=== PATIENT | female | born 1980 | race African-American/Black ===

== ENCOUNTER 2017-02-06 07:05 | Emergency (ER) | payer OTHER ==
[~2017-02-06] VITALS: Ht 170.2 cm; Wt 86.3 kg
[~2017-02-06 07:05] MED LIST: ABILIFY20 MG PO; ADDERALL XR 1515 MG PO; ADDERALL15 MG PO; ALBUTEROL SULF8.5 GM IH; AMBIEN10 MG PO; ANTIBIOTIC; Ambien PO; Augmentin PO; BACTRIM,SEPT1 TABLET PO; BENTYL20 MG PO; BUSPAR15 MG PO; CATAPRES0.1 MG PO; CEFDINIR300 MG PO; CIPRO500 MG PO; CLINDAMYCIN HC300 MG PO; CLONAZEPAM0.5 MG PO; CLONIDINE HCL0.1 MG PO; COUMADIN5 MG PO; CYCLOBENZAPRINE10 MG PO; Catapres PO; Citrate Of Magnesia PO; DOXYCYCLINE HY100 M1 PO; DOXYCYCLINE HY100 MG PO; FLAGYL500 MG PO; FLORASTOR250 MG PO; FONDAPARIN7.5 MG/0.6 SC; GLUCOPHAGE500 MG PO; Glucophage PO; INVEGA6 MG PO; KEFLEX500 MG PO; KLONOPIN0.5 M1 PO; KlonoPIN PO; LAMICTAL200 MG PO; LAMICTAL25 MG PO; LAMICTAL5 MG PO; LAMOTRIGINE100 MG PO; LAMOTRIGINE200 MG PO; LEVAQUIN750 MG PO; LEXAPRO10 MG PO; LaMICtal PO; Lovenox SC; MACROBID100 MG PO; MEGACE20 MG PO; METFORMIN; METFORMIN HCL500 MG PO; MOTRIN800 MG PO; MUCUS ER600 MG PO; NAPROSYN500 MG PO; NORCO 7.5/321 TABLET PO; OPANA ER10 MG PO; OPANA ER15 MG PO; OXYCODONE HCL10 MG PO; OXYCODONE HCL20 M1 PO; OXYCONTIN20 MG; OXYMORPHONE HCL10 M1; Omnicef PO; OxyCODONE PO; PEN-VEE K,VEET500 MG PO; PERCOCET 10/1 TABLET PO; PERCOCET 5/31 TABLET PO; PRAZOSIN HCL1 MG PO; PROMETHAZINE HC25 M1 PO; PROVENTIL HFA6.7 GM IH; PYRIDIUM200 MG PO; RYBIX ODT50 MG PO; SERTRALINE HCL100 MG PO; SERTRALINE HCL25 MG; STRATTERA; TESSALON PERLE100 MG PO; TIZANIDINE HCL4 M1 PO; TIZANIDINE HCL4 MG PO; TOPAMAX; TRAMADOL HCL50 MG PO; TYLENOL REGULA325 MG PO; VICODIN HP 10-1 EACH PO; WARFARIN SODIU7.5 MG PO; WARFARIN SODIUM5 MG PO; ZOFRAN4 MG PO; ZOLOFT100 MG PO; Zoloft PO; [UNRECOGNIZED DRUG - REMARK]; oxyCODONE PO
[2017-02-06 08:13] LABS: HEMATOCRIT 43.3 % (36.0-46.0); MCH 29.9 PG (29.0-34.0); MCHC 33.9 G/DL (30.0-36.0); MCV 88.2 FL (83-99); PLATELET COUNT 333 K/uL (156-360); RBC DIS.WIDTH-CV 12.6 % (11.8-14.6); RED BLOOD COUNT 4.91 M/uL (3.80-5.20); WHITE BLOOD COUNT 18.4 K/uL (4.1-10.2)
[2017-02-06 08:22] LABS: CHLORIDE 104 mEq/L (99-109); POTASSIUM 3.3 mEq/L (3.7-5.4); SODIUM 142 mEq/L (136-147)
[2017-02-06 08:24] LABS: GLUCOSE 207 mg/dL (70-99)
[2017-02-06 08:25] LABS: ANION GAP 19 MEQ/L (2-14)
[2017-02-06 08:26] LABS: TOTAL BILIRUBIN 0.8 mg/dL (0.0-1.0)
[2017-02-06 08:27] LABS: ALKALINE PHOSPHATASE 46 IU/L (3-129)
[2017-02-06 08:28] LABS: GFR ESTIMATE (CALCULATED) > 59 mL/min/
[2017-02-06 08:29] LABS: UREA NITROGEN (BUN) 19 mg/dL (9-23)
[2017-02-06 08:31] LABS: LIPASE 15 U/L (1.0-51.0)
[2017-02-06 08:38] LABS: QUANTITATIVE HCG < 4.0 MIU/ML
[2017-02-06 10:27] LABS: ADD MIUA? YES; BILIRUBIN NEGATIVE; BLOOD NEGATIVE; COLOR YELLOW ((YELLOW)); GLUCOSE (STRIP) NEGATIVE; KETONES 80; LEUKOCYTES TRACE; NITRITE POSITIVE; PROTEIN (STRIP) 100; SPECIFIC GRAVITY 1.028 (1.000-1.030); UROBILINOGEN 0.2 MG/DL (0.2-1.0)
[2017-02-06 10:38] LABS: BACTERIA 2+ /HPF; EPITHELIAL CELLS RARE /HPF; MUCUS 4+ /LPF; RED BLOOD CELLS 0-5 /HPF (0-5); UCUL ADDED? YES
[2017-02-06 13:05] VITALS: BP 123/40
[2017-02-07] MEDS ORDERED: PERCOCET 7.51 TABLET PO (14:00)
[2017-02-07] MEDS ORDERED: ZOFRAN ODT4 MG PO (14:01)
[2017-02-07] MEDS ORDERED: ADDERALL XR 2020 MG PO (14:05)
== END 2017-02-06 13:12 | disposition home or self-care (01) ==
LOC: EME 07:05
DX: N39.0 Urinary tract infection, site not specified (principal); R11.2 Nausea with vomiting, unspecified; Z87.440 Personal history of urinary (tract) infections
CPT/HCPCS: 74176; 80053; 81003; 83690; 84702; 85027; 87077; 87086; 87186; 99281; 99284; J1885; J2270; J2405; J3260; J7030; J7050

== ENCOUNTER 2017-03-20 17:49 | Emergency (ER) | payer OTHER ==
[~2017-03-20] VITALS: Ht 170.2 cm; Wt 80.1 kg
[~2017-03-20 17:49] MED LIST changes: +ADDERALL XR 2020 MG PO; +PERCOCET 7.51 TABLET PO; +ZOFRAN ODT4 MG PO
[2017-03-20 19:31] LABS: HEMATOCRIT 39.6 % (36.0-46.0); MCH 30.7 PG (29.0-34.0); MCHC 33.8 G/DL (30.0-36.0); MCV 90.6 FL (83-99); MEAN PLAT.VOLUME 9.9 uM^3 (9.5-12.4); PLATELET COUNT 317 K/uL (156-360); RBC DIS.WIDTH-CV 12.5 % (11.8-14.6); RBC DIS.WIDTH-SD 41.3 % (39-53); RED BLOOD COUNT 4.37 M/uL (3.80-5.20); WHITE BLOOD COUNT 7.9 K/uL (4.1-10.2)
[2017-03-20 19:40] LABS: CHLORIDE 111 mEq/L (99-109); POTASSIUM 3.4 mEq/L (3.7-5.4); SODIUM 145 mEq/L (136-147)
[2017-03-20 19:41] LABS: GLUCOSE 108 mg/dL (70-99)
[2017-03-20 19:43] LABS: ANION GAP 12 MEQ/L (2-14)
[2017-03-20 19:45] LABS: GFR ESTIMATE (CALCULATED) > 59 mL/min/; SERUM ETHYL ALCOHOL < 10 mg/dL
[2017-03-20 19:46] LABS: UREA NITROGEN (BUN) 11 mg/dL (9-23)
[2017-03-20 19:54] LABS: QUANTITATIVE HCG < 4.0 MIU/ML
[2017-03-20 22:26] LABS: SALICYLATE < 5.0 MG/DL (15-30)
[2017-03-20] MEDS ORDERED: GABAPENTIN100 MG PO (23:50)
[2017-03-21 01:35] LABS: ADD MEDTOX COMMENT Y; AMPHETAMINE NEGATIVE (500 ng/mL); BARBITURATES NEGATIVE (200 ng/mL); BENZODIAZEPINES NEGATIVE (150 ng/mL); COCAINE NEGATIVE (150 ng/mL); INTERNAL CONTROLS VALID? YES; METHADONE NEGATIVE (200 ng/mL); METHAMPHETAMINE NEGATIVE (500 ng/mL); OPIATES (MORPHINE) NEGATIVE (100 ng/mL); OXYCODONE NEGATIVE (100 ng/mL); PHENCYCLIDINE NEGATIVE (25 ng/mL); PROPOXYPHENE NEGATIVE (300 ng/mL); THC CANNABINOIDS PRESUMPTIVE POSITIVE (50 ng/mL); TRICYCLIC ANTIDEPRESSANTS NEGATIVE (300 ng/mL)
[2017-03-21] MEDS ORDERED: ZOLOFT50 MG PO (13:37)
[2017-03-21 13:58] VITALS: BP 118/72
== END 2017-03-21 14:05 ==
LOC: EME 17:49
DX: F31.30 Bipolar disorder, current episode depressed, mild or moderate severity, unspecified (principal); R45.851 Suicidal ideations; I10 Essential (primary) hypertension; E11.9 Type 2 diabetes mellitus without complications; K21.9 Gastro-esophageal reflux disease without esophagitis; Z86.711 Personal history of pulmonary embolism; G89.29 Other chronic pain; J45.909 Unspecified asthma, uncomplicated; G43.909 Migraine, unspecified, not intractable, without status migrainosus
CPT/HCPCS: 80048; 84702; 84999; 85027; 90837; 99281; 99285; G0480

== ENCOUNTER 2017-03-23 22:53 | Emergency (ER) | payer OTHER ==
[~2017-03-23] VITALS: Ht 167.6 cm; Wt 78.0 kg
[~2017-03-23 22:53] MED LIST changes: +GABAPENTIN100 MG PO; +ZOLOFT50 MG PO
[2017-03-23 23:55] LABS: MCH 29.9 PG (29.0-34.0); MCHC 32.4 G/DL (30.0-36.0); PLATELET COUNT 284 K/uL (156-360); RBC DIS.WIDTH-CV 12.6 % (11.8-14.6); RBC DIS.WIDTH-SD 42.1 % (39-53); RED BLOOD COUNT 4.02 M/uL (3.80-5.20); WHITE BLOOD COUNT 6.9 K/uL (4.1-10.2)
[2017-03-24 00:13] LABS: CHLORIDE 110 mEq/L (99-109); POTASSIUM 3.9 mEq/L (3.7-5.4); SODIUM 143 mEq/L (136-147)
[2017-03-24 00:16] LABS: GLUCOSE 96 mg/dL (70-99)
[2017-03-24 00:17] LABS: ANION GAP 9 MEQ/L (2-14); TOTAL BILIRUBIN 0.2 mg/dL (0.0-1.0)
[2017-03-24 00:18] LABS: SERUM ETHYL ALCOHOL < 10 mg/dL
[2017-03-24 00:19] LABS: GFR ESTIMATE (CALCULATED) > 59 mL/min/
[2017-03-24 00:20] LABS: ALKALINE PHOSPHATASE 43 IU/L (3-129)
[2017-03-24 00:21] LABS: UREA NITROGEN (BUN) 15 mg/dL (9-23)
[2017-03-24 00:23] LABS: SALICYLATE < 5.0 MG/DL (15-30)
[2017-03-24 00:26] LABS: ADD MIUA? YES; BILIRUBIN NEGATIVE; BLOOD NEGATIVE; COLOR YELLOW ((YELLOW)); GLUCOSE (STRIP) NEGATIVE; KETONES NEGATIVE; LEUKOCYTES TRACE; NITRITE POSITIVE; PROTEIN (STRIP) NEGATIVE; SPECIFIC GRAVITY 1.011 (1.000-1.030); UROBILINOGEN 0.2 MG/DL (0.2-1.0)
[2017-03-24 00:29] LABS: BACTERIA RARE /HPF; EPITHELIAL CELLS RARE /HPF; MUCUS TRACE /LPF; RED BLOOD CELLS 0-5 /HPF (0-5); UCUL ADDED? NO
[2017-03-24 00:32] LABS: QUANTITATIVE HCG < 4.0 MIU/ML
[2017-03-24 00:34] LABS: ADD MEDTOX COMMENT Y; AMPHETAMINE PRESUMPTIVE POSITIVE (500 ng/mL); BARBITURATES NEGATIVE (200 ng/mL); BENZODIAZEPINES NEGATIVE (150 ng/mL); COCAINE NEGATIVE (150 ng/mL); INTERNAL CONTROLS VALID? YES; METHADONE NEGATIVE (200 ng/mL); METHAMPHETAMINE NEGATIVE (500 ng/mL); OPIATES (MORPHINE) NEGATIVE (100 ng/mL); OXYCODONE PRESUMPTIVE POSITIVE (100 ng/mL); PHENCYCLIDINE NEGATIVE (25 ng/mL); PROPOXYPHENE NEGATIVE (300 ng/mL); THC CANNABINOIDS PRESUMPTIVE POSITIVE (50 ng/mL); TRICYCLIC ANTIDEPRESSANTS NEGATIVE (300 ng/mL)
[2017-03-24 07:33] VITALS: BP 119/71
== END 2017-03-24 07:51 ==
LOC: EME → EDBD 22:53 → EME 22:53
PROVIDERS: Emergency Medicine
DX: T50.904A Poisoning by unspecified drugs, medicaments and biological substances, undetermined, initial encounter (principal); R41.82 Altered mental status, unspecified; F31.30 Bipolar disorder, current episode depressed, mild or moderate severity, unspecified; E11.9 Type 2 diabetes mellitus without complications
CPT/HCPCS: 70450; 71010; 72125; 80053; 81003; 82140; 84702; 84999; 85027; 93005; 99281; 99284; G0480; J7030

== ENCOUNTER 2017-06-13 12:22 | Emergency (ER) | payer OTHER ==
[~2017-06-13] VITALS: Ht 170.2 cm; Wt 83.3 kg
[2017-06-13 13:28] LABS: ADD MIUA? YES; BILIRUBIN NEGATIVE; BLOOD NEGATIVE; COLOR YELLOW ((YELLOW)); GLUCOSE (STRIP) NEGATIVE; KETONES NEGATIVE; LEUKOCYTES SMALL; NITRITE POSITIVE; PROTEIN (STRIP) 30; SPECIFIC GRAVITY 1.024 (1.000-1.030); UROBILINOGEN 0.2 MG/DL (0.2-1.0)
[2017-06-13 13:30] LABS: HEMATOCRIT 38.3 % (36.0-46.0); MCH 30.2 PG (29.0-34.0); MCHC 32.6 G/DL (30.0-36.0); MCV 92.5 FL (83-99); MEAN PLAT.VOLUME 9.6 uM^3 (9.5-12.4); PLATELET COUNT 249 K/uL (156-360); RBC DIS.WIDTH-CV 12.2 % (11.8-14.6); RBC DIS.WIDTH-SD 41.6 % (39-53); RED BLOOD COUNT 4.14 M/uL (3.80-5.20); WHITE BLOOD COUNT 6.1 K/uL (4.1-10.2)
[2017-06-13 13:44] LABS: BACTERIA 2+ /HPF; EPITHELIAL CELLS RARE /HPF; MUCUS 2+ /LPF; RED BLOOD CELLS 0-5 /HPF (0-5); UCUL ADDED? YES
[2017-06-13 13:44] LABS: CHLORIDE 101 mEq/L (99-109); POTASSIUM 3.7 mEq/L (3.7-5.4); SODIUM 140 mEq/L (136-147)
[2017-06-13 13:46] LABS: GLUCOSE 89 mg/dL (70-99)
[2017-06-13 13:48] LABS: ANION GAP 8 MEQ/L (2-14); TOTAL BILIRUBIN 0.2 mg/dL (0.0-1.0)
[2017-06-13 13:50] LABS: ALKALINE PHOSPHATASE 44 IU/L (3-129); GFR ESTIMATE (CALCULATED) > 59 mL/min/
[2017-06-13 13:51] LABS: UREA NITROGEN (BUN) 13 mg/dL (9-23)
[2017-06-13 13:53] LABS: LIPASE 13 U/L (1.0-51.0)
[2017-06-13] MEDS ORDERED: MACROBID100 MG PO (16:36)
[2017-06-13] MEDS ORDERED: CIPRO500 MG PO (16:44)
[2017-06-13 17:45] VITALS: BP 117/78
== END 2017-06-13 17:57 | disposition home or self-care (01) ==
LOC: EME 12:22
DX: S39.011A Strain of muscle, fascia and tendon of abdomen, initial encounter (principal); N39.0 Urinary tract infection, site not specified; E11.9 Type 2 diabetes mellitus without complications; I10 Essential (primary) hypertension; J45.909 Unspecified asthma, uncomplicated; K21.9 Gastro-esophageal reflux disease without esophagitis; Z87.442 Personal history of urinary calculi; Z90.710 Acquired absence of both cervix and uterus; Z86.718 Personal history of other venous thrombosis and embolism
CPT/HCPCS: 74177; 80053; 81003; 83690; 85027; 87077; 87086; 87186; 99281; 99285; J2270; J3010; J7040

== ENCOUNTER 2017-06-30 01:54 | Observation (INO) | payer OTHER ==
[~2017-06-30] VITALS: Ht 170.2 cm; Wt 83.8 kg
[2017-06-30 02:36] LABS: EOSINOPHIL COUNT 0.1 K/uL (0-0.3); HEMATOCRIT 40.2 % (36.0-46.0); IMMATURE GRANULOCYTE (%) 0.2 % (0.0-0.7); INSTRUMENT ABS NEUTROPHIL CT 5.6 K/uL; LYMPHOCYTE COUNT 3.4 K/uL (1.0-2.8); MCH 30.4 PG (29.0-34.0); MCHC 33.1 G/DL (30.0-36.0); MCV 91.8 FL (83-99); MEAN PLAT.VOLUME 9.7 uM^3 (9.5-12.4); MONOCYTE (%) 4.4 % (3-12); MONOCYTE COUNT 0.4 K/uL (0-0.8); NEUTROPHIL (%) 58.3 % (45-76); NEUTROPHIL COUNT 5.6 K/uL (1.8-6.4); PLATELET COUNT 283 K/uL (156-360); RBC DIS.WIDTH-CV 12.3 % (11.8-14.6); RBC DIS.WIDTH-SD 41.4 % (39-53); RED BLOOD COUNT 4.38 M/uL (3.80-5.20); WHITE BLOOD COUNT 9.5 K/uL (4.1-10.2)
[2017-06-30 02:44] LABS: CHLORIDE 107 mEq/L (99-109); POTASSIUM 3.4 mEq/L (3.7-5.4); SODIUM 142 mEq/L (136-147)
[2017-06-30 02:47] LABS: GLUCOSE 166 mg/dL (70-99)
[2017-06-30 02:48] LABS: ANION GAP 13 MEQ/L (2-14); TOTAL BILIRUBIN 0.2 mg/dL (0.0-1.0)
[2017-06-30 02:50] LABS: ALKALINE PHOSPHATASE 50 IU/L (3-129)
[2017-06-30 02:51] LABS: UREA NITROGEN (BUN) 11 mg/dL (9-23)
[2017-06-30 02:52] LABS: DIRECT BILIRUBIN 0.1 mg/dL (0.0-0.3)
[2017-06-30 02:54] LABS: GFR ESTIMATE (CALCULATED) > 59 mL/min/; LIPASE 27 U/L (1.0-51.0)
[2017-06-30 04:10] LABS: ADD MIUA? YES; BILIRUBIN NEGATIVE; BLOOD NEGATIVE; COLOR AMBER ((YELLOW)); GLUCOSE (STRIP) NEGATIVE; KETONES NEGATIVE; LEUKOCYTES TRACE; NITRITE POSITIVE; PROTEIN (STRIP) 30; SPECIFIC GRAVITY 1.026 (1.000-1.030); UROBILINOGEN 0.2 MG/DL (0.2-1.0)
[2017-06-30 04:13] LABS: INTERNAL CONTROL VALID? YES
[2017-06-30 04:33] LABS: RED BLOOD CELLS 0-5 /HPF (0-5)
[2017-06-30 04:34] LABS: BACTERIA 3+ /HPF; CALCIUM OXALATE CRYSTALS 2+ /HPF; CASTS NONE SEEN /LPF; CRYSTALS PRESENT; EPITHELIAL CELLS 2+ /HPF; MUCUS 3+ /LPF; UCUL ADDED? YES
[2017-06-30] MEDS ORDERED: LEVAQUIN500 MG PO (04:41)
[2017-06-30] MEDS ORDERED: PERCOCET 5/31 TABLET PO (04:51)
[2017-06-30] MEDS ORDERED: ZYPREXA10 MG PO (07:40)
[2017-06-30] MEDS ORDERED: ATARAX,VISTARIL25 MG PO (07:41)
[2017-06-30] MEDS ORDERED: FLEXERIL5 MG PO (07:41)
[2017-06-30 11:48] VITALS: BP 107/73
[2017-06-30 17:20] LABS: POINT-OF-CARE METER ID UU13113700
[2017-06-30 18:00] VITALS: BP 102/66
[2017-06-30 22:02] LABS: POINT-OF-CARE METER ID UU13113700
[2017-07-01 00:30] VITALS: BP 125/88
[2017-07-01 04:02] VITALS: BP 126/72
[2017-07-01 05:54] LABS: HEMATOCRIT 35.3 % (36.0-46.0); MCH 31.1 PG (29.0-34.0); MCHC 32.9 G/DL (30.0-36.0); MCV 94.6 FL (83-99); MEAN PLAT.VOLUME 10.1 uM^3 (9.5-12.4); PLATELET COUNT 240 K/uL (156-360); RBC DIS.WIDTH-CV 12.3 % (11.8-14.6); RBC DIS.WIDTH-SD 42.7 % (39-53); RED BLOOD COUNT 3.73 M/uL (3.80-5.20)
[2017-07-01 06:26] LABS: ANION GAP 8 MEQ/L (2-14); CHLORIDE 114 MEQ/L (99-109); GFR ESTIMATE (CALCULATED) > 59 mL/min/; SAMPLE HEMOLYSIS CHECK 0; SAMPLE ICTERIC CHECK 0; SAMPLE LIPEMIA CHECK 0; SODIUM 146 MEQ/L (136-147); UREA NITROGEN (BUN) 13 mg/dL (9-23)
[2017-07-01 06:27] LABS: GLUCOSE 98 mg/dL (70-99); POTASSIUM 4.6 MEQ/L (3.7-5.4)
[2017-07-01 08:10] LABS: POINT-OF-CARE METER ID UU13113831
[2017-07-01 08:29] LABS: Estimated Average Glucose 120 mg/dL (70-123); HEMOGLOBIN A1c (GLYCOHEMOGLOB) 5.8 % HGB (Below 5.7)
[2017-07-01 08:40] VITALS: BP 136/79
[2017-07-01] MEDS ORDERED: CEFTIN500 MG PO (09:23)
== END 2017-07-01 10:17 | disposition home or self-care (01) ==
LOC: EME 01:54 → ENRESERV 10:38 → EDOF 10:46 → 5WEST 10:46 → EDOF 10:46 → ENRESERV 10:47 → 5WEST 11:36
PROVIDERS: Emergency Medicine; Internal Medicine
DX: N39.0 Urinary tract infection, site not specified (principal); E11.9 Type 2 diabetes mellitus without complications; K21.9 Gastro-esophageal reflux disease without esophagitis; F32.9 Major depressive disorder, single episode, unspecified; Z86.718 Personal history of other venous thrombosis and embolism; Z95.828 Presence of other vascular implants and grafts; J45.909 Unspecified asthma, uncomplicated; Z87.440 Personal history of urinary (tract) infections; Z90.710 Acquired absence of both cervix and uterus; E78.5 Hyperlipidemia, unspecified; I10 Essential (primary) hypertension; Z82.49 Family history of ischemic heart disease and other diseases of the circulatory system; Z91.09 Other allergy status, other than to drugs and biological substances; Z91.040 Latex allergy status; Z88.5 Allergy status to narcotic agent; Z91.010 Allergy to peanuts; Z91.018 Allergy to other foods
CPT/HCPCS: 74176; 80048; 80076; 81003; 82948; 83036; 83605; 83690; 84703; 85025; 85027; 87077; 87086; 87186; 99202; 99281; 99285; G0378; J0696; J1650; J1885; J2765; J7030; J7050; Q0177

== ENCOUNTER 2017-09-12 11:07 | Emergency (ER) | payer OTHER ==
[~2017-09-12] VITALS: Ht 170.2 cm; Wt 83.0 kg
[~2017-09-12 11:07] MED LIST changes: +ATARAX,VISTARIL25 MG PO; +CEFTIN500 MG PO; +FLEXERIL5 MG PO; +LEVAQUIN500 MG PO; +ZYPREXA10 MG PO
[2017-09-12 13:15] VITALS: BP 102/69
[2017-09-12] MEDS ORDERED: FLEXERIL10 MG PO (13:45)
[2017-09-12] MEDS ORDERED: NAPROSYN500 MG PO (13:45)
== END 2017-09-12 14:11 | disposition home or self-care (01) ==
LOC: EME 11:07
DX: S20.212A Contusion of left front wall of thorax, initial encounter (principal); W10.9XXA Fall (on) (from) unspecified stairs and steps, initial encounter; J45.909 Unspecified asthma, uncomplicated; F32.9 Major depressive disorder, single episode, unspecified; F41.9 Anxiety disorder, unspecified; Z86.718 Personal history of other venous thrombosis and embolism; Z95.828 Presence of other vascular implants and grafts; Z91.040 Latex allergy status; Z88.8 Allergy status to other drugs, medicaments and biological substances
CPT/HCPCS: 71100; 99281; 99283

== ENCOUNTER 2017-10-09 16:29 | Observation (INO) | payer OTHER ==
[~2017-10-09] VITALS: Ht 170.2 cm; Wt 79.8 kg
[~2017-10-09 16:29] MED LIST changes: +FLEXERIL10 MG PO; -LAMOTRIGINE100 MG PO; -PERCOCET 7.51 TABLET PO; -ZYPREXA10 MG PO; +ZYPREXA15 MG PO
[2017-10-09 17:42] LABS: EOSINOPHIL (%) 0.1 % (0-5); HEMATOCRIT 43.6 % (36.0-46.0); IMMATURE GRANULOCYTE (%) 0.3 % (0.0-0.7); INSTRUMENT ABS NEUTROPHIL CT 10.2 K/uL; LYMPHOCYTE COUNT 1.8 K/uL (1.0-2.8); MCHC 34.2 G/DL (30.0-36.0); MCV 90.6 FL (83-99); MEAN PLAT.VOLUME 9.5 uM^3 (9.5-12.4); MONOCYTE (%) 4.7 % (3-12); MONOCYTE COUNT 0.6 K/uL (0-0.8); NEUTROPHIL (%) 80.7 % (45-76); NEUTROPHIL COUNT 10.2 K/uL (1.8-6.4); PLATELET COUNT 320 K/uL (156-360); RBC DIS.WIDTH-CV 12.2 % (11.8-14.6); RBC DIS.WIDTH-SD 40.4 % (39-53); RED BLOOD COUNT 4.81 M/uL (3.80-5.20); WHITE BLOOD COUNT 12.7 K/uL (4.1-10.2)
[2017-10-09 17:53] LABS: CHLORIDE 105 mEq/L (99-109); POTASSIUM 3.8 mEq/L (3.7-5.4); SODIUM 140 mEq/L (136-147)
[2017-10-09 17:55] LABS: GLUCOSE 141 mg/dL (70-99)
[2017-10-09 17:56] LABS: ANION GAP 11 MEQ/L (2-14)
[2017-10-09 17:59] LABS: GFR ESTIMATE (CALCULATED) > 59 mL/min/
[2017-10-09 18:00] LABS: UREA NITROGEN (BUN) 11 mg/dL (9-23)
[2017-10-09 18:19] LABS: POINT-OF-CARE METER ID UU14100415
[2017-10-09 18:31] LABS: ADD MIUA? YES; BILIRUBIN NEGATIVE; BLOOD NEGATIVE; COLOR YELLOW ((YELLOW)); GLUCOSE (STRIP) NEGATIVE; KETONES NEGATIVE; LEUKOCYTES SMALL; NITRITE POSITIVE; PROTEIN (STRIP) NEGATIVE; SPECIFIC GRAVITY 1.017 (1.000-1.030); UROBILINOGEN 0.2 MG/DL (0.2-1.0)
[2017-10-09 18:37] LABS: ERTH.SED.RATE 26 MM/HR (0-20)
[2017-10-09 18:45] LABS: BACTERIA RARE /HPF; CALCIUM OXALATE CRYSTALS 1+ /HPF; EPITHELIAL CELLS 1+ /HPF; MUCUS 2+ /LPF; RED BLOOD CELLS 0-5 /HPF (0-5); UCUL ADDED? YES; WHITE BLOOD CELLS 15-20 /HPF (0-5)
[2017-10-09] MEDS ORDERED: DURAGESIC12 MCG TD (22:06)
[2017-10-09] MEDS ORDERED: ADDERALL20 MG PO (22:07)
[2017-10-10 02:16] VITALS: BP 117/73
[2017-10-10 04:00] VITALS: BP 109/66
[2017-10-10 07:22] VITALS: BP 107/56
[2017-10-10 11:42] VITALS: BP 96/55
[2017-10-10] MEDS ORDERED: CEFTIN500 MG PO (14:17)
== END 2017-10-10 15:40 | disposition home or self-care (01) ==
LOC: EME 16:29 → EDOF 23:19 → 5WEST 23:19 → EDOF 23:19 → ENRESERV 23:21 → 5WEST 10-10 01:51
PROVIDERS: Emergency Medicine; Hospitalist
DX: G89.29 Other chronic pain (principal); M54.5 Low back pain; N39.0 Urinary tract infection, site not specified; Z85.41 Personal history of malignant neoplasm of cervix uteri; Z87.440 Personal history of urinary (tract) infections; G43.909 Migraine, unspecified, not intractable, without status migrainosus; J45.909 Unspecified asthma, uncomplicated; R32 Unspecified urinary incontinence; F43.10 Post-traumatic stress disorder, unspecified; Z90.710 Acquired absence of both cervix and uterus; Z98.890 Other specified postprocedural states; E66.01 Morbid (severe) obesity due to excess calories; Z68.27 Body mass index [BMI] 27.0-27.9, adult; Z91.010 Allergy to peanuts; Z91.018 Allergy to other foods; Z91.09 Other allergy status, other than to drugs and biological substances; Z91.040 Latex allergy status; Z88.8 Allergy status to other drugs, medicaments and biological substances
CPT/HCPCS: 71020; 72148; 80048; 81003; 82948; 83605; 85025; 85379; 85651; 87077; 87086; 87186; 99281; 99285; G0378; J0696; J1170; J1650; J1885; J7050

== ENCOUNTER 2018-01-14 11:04 | Emergency (ER) | payer OTHER ==
[~2018-01-14] VITALS: Ht 170.2 cm; Wt 84.1 kg
[~2018-01-14 11:04] MED LIST changes: +ADDERALL20 MG PO; +DURAGESIC12 MCG TD
[2018-01-14 11:59] LABS: HEMATOCRIT 48.9 % (36.0-46.0); HEMOGLOBIN 16.2 G/DL (11.9-15.5); MCHC 33.1 G/DL (30.0-36.0); MCV 93.5 FL (83-99); RBC DIS.WIDTH-CV 12.8 % (11.8-14.6); RBC DIS.WIDTH-SD 43.8 % (39-53); RED BLOOD COUNT 5.23 M/uL (3.80-5.20); WHITE BLOOD COUNT 10.6 K/uL (4.1-10.2)
[2018-01-14 12:58] LABS: APPEARANCE CLOUDY ((CLEAR)); BILIRUBIN NEGATIVE; BLOOD NEGATIVE; COLOR YELLOW ((YELLOW)); GLUCOSE (STRIP) NEGATIVE; KETONES NEGATIVE; LEUKOCYTES NEGATIVE; NITRITE POSITIVE; PROTEIN (STRIP) NEGATIVE; SPECIFIC GRAVITY 1.015 (1.000-1.030); UROBILINOGEN 0.2 MG/DL (0.2-1.0)
[2018-01-14 13:01] LABS: BACTERIA RARE /HPF; EPITHELIAL CELLS 1+ /HPF; MUCUS TRACE /LPF; RED BLOOD CELLS 0-5 /HPF (0-5); UCUL ADDED? NO; WHITE BLOOD CELLS 0-5 /HPF (0-5)
[2018-01-14 13:08] LABS: ALBUMIN 5.1 g/dL (3.2-4.8); CHLORIDE 107 mEq/L (99-109); SODIUM 144 mEq/L (136-147)
[2018-01-14 13:10] LABS: GLUCOSE 123 mg/dL (70-99); TOTAL PROTEIN 8.5 g/dL (6.4-8.3)
[2018-01-14 13:12] LABS: TOTAL BILIRUBIN 0.4 mg/dL (0.0-1.0)
[2018-01-14 13:14] LABS: ALKALINE PHOSPHATASE 49 IU/L (3-129); CREATININE 0.7 mg/dL (0.6-1.3); GFR ESTIMATE (CALCULATED) > 59 mL/min/
[2018-01-14 13:15] LABS: AST (GOT) 17 IU/L (2-34); UREA NITROGEN (BUN) 9 mg/dL (9-23)
[2018-01-14 13:17] LABS: ALT (GPT) 18 IU/L (3-49)
[2018-01-14 13:28] LABS: QUANTITATIVE HCG < 4.0 MIU/ML
[2018-01-14 13:57] LABS: CHLORIDE 107 mEq/L (99-109); POTASSIUM 3.9 mEq/L (3.7-5.4); SODIUM 142 mEq/L (136-147)
[2018-01-14 13:59] LABS: GLUCOSE 126 mg/dL (70-99)
[2018-01-14 14:03] LABS: CREATININE 0.8 mg/dL (0.6-1.3); GFR ESTIMATE (CALCULATED) > 59 mL/min/
[2018-01-14 14:04] LABS: UREA NITROGEN (BUN) 9 mg/dL (9-23)
[2018-01-14] MEDS ORDERED: KEFLEX500 MG PO (14:51)
[2018-01-14 15:15] VITALS: BP 103/64
== END 2018-01-14 15:39 | disposition home or self-care (01) ==
LOC: EME 11:04
PROVIDERS: Physician Assistant
DX: B34.9 Viral infection, unspecified (principal); N39.0 Urinary tract infection, site not specified; B96.20 Unspecified Escherichia coli [E. coli] as the cause of diseases classified elsewhere; Z16.11 Resistance to penicillins; Z87.440 Personal history of urinary (tract) infections; J45.909 Unspecified asthma, uncomplicated; F43.10 Post-traumatic stress disorder, unspecified; F42.9 Obsessive-compulsive disorder, unspecified; Z85.41 Personal history of malignant neoplasm of cervix uteri; Z90.711 Acquired absence of uterus with remaining cervical stump; Z88.5 Allergy status to narcotic agent; Z91.040 Latex allergy status; Z91.09 Other allergy status, other than to drugs and biological substances
CPT/HCPCS: 80048 91; 80053; 81003; 84702; 85027; 87077; 87086; 87186; 99281; 99285; J1885; J2405; J7030